=== PATIENT | female | born 1945 | race Caucasian/White ===

== ENCOUNTER 2016-05-22 13:31 | Inpatient (IN) | payer BC, OTHER ==
[~2016-05-22] VITALS: Ht 167.6 cm; Wt 72.5 kg
[~2016-05-22 13:31] MED LIST: Diabeta,Micronase PO; FLEXERIL10 MG PO; GUMMI BEAR MUL1 EACH PO; LEVEMIR FL100 UNITS/ SC; LISINOPRIL-HCT1 EAC3 PO; LO-DOSE ASPIRIN81 M1 PO; Lantus 3 ml Solostar SC; MAGNESIUM OXID420 MG PO; MOBIC7.5 MG PO; Mag-Ox PO; NAPROSYN500 MG PO; NON-ASPIRIN EX500 MG PO; NORCO 5/3251 TABLET PO; PERCOCET 5/31 TABLET PO; SERTRALINE HCL100 MG PO; TRADJENTA5 MG PO; TYLENOL WITH C1 EACH PO; VITAMIN D31000 UNI2 PO; VITAMIN E400 UNI6 PO; ZOFRAN4 MG PO; ZOLOFT25 MG PO; Zestoretic,Prinzide PO; Zocor PO
[2016-05-22 14:11] LABS: HEMATOCRIT 37.6 % (36.0-46.0); MCHC 32.2 G/DL (30.0-36.0); MEAN PLAT.VOLUME 10.3 uM^3 (9.5-12.4); RBC DIS.WIDTH-CV 14.4 % (11.8-14.6); RBC DIS.WIDTH-SD 45.1 % (39-53); RED BLOOD COUNT 4.32 M/uL (3.80-5.20); WHITE BLOOD COUNT 12.8 K/uL (4.1-10.2)
[2016-05-22 14:22] LABS: CHLORIDE 104 mEq/L (99-109); POTASSIUM 4.2 mEq/L (3.7-5.4); SODIUM 137 mEq/L (136-147)
[2016-05-22 14:26] LABS: ANION GAP 8 MEQ/L (2-14); GLUCOSE 424 mg/dL (70-99); TOTAL BILIRUBIN 0.4 mg/dL (0.0-1.0)
[2016-05-22 14:29] LABS: UREA NITROGEN (BUN) 11 mg/dL (9-23)
[2016-05-22 14:31] LABS: GFR ESTIMATE (CALCULATED) > 59 mL/min/
[2016-05-22 14:34] LABS: TROP-I INTERPRETATION NEGATIVE; TROPONIN-I < 0.01 ng/mL (0.0-0.30)
[2016-05-22 14:39] LABS: ALKALINE PHOSPHATASE 91 IU/L (3-129)
[2016-05-22 14:46] LABS: PLATELET COUNT 187 K/uL (156-360)
[2016-05-22 14:58] LABS: EOSINOPHIL (%) 0 % (0-5); HEMATOLOGY COMMENT 1 SMEAR COMPATIBLE; IMMATURE GRANULOCYTE (%) 2.3 % (0.0-0.7); IMMATURE GRANULOCYTE COUNT 2.9 K/uL; LYMPHOCYTE COUNT 0.4 K/uL (1.0-2.8); MONOCYTE (%) 0.5 % (3-12); MONOCYTE COUNT 0.1 K/uL (0-0.8); NEUTROPHIL (%) 93.8 % (45-76); NEUTROPHIL COUNT 12.1 K/uL (1.8-6.4); USER ID NJV
[2016-05-22 15:40] LABS: D-DIMER ELISA 1.33 mg/L FEU (< 0.57)
[2016-05-22] MEDS ORDERED: NORCO 7.5/321 TABLET PO (15:58)
[2016-05-22] MEDS ORDERED: MAGNESIUM GLUCO30 MG PO (15:58)
[2016-05-22] MEDS ORDERED: LEVEMIR FL100 UNIT/1 SC ×2 (15:59)
[2016-05-22] MEDS ORDERED: OMEPRAZOLE40 M1 PO (16:00)
[2016-05-22] MEDS ORDERED: PENNSAID112 GM TP (16:00)
[2016-05-22] MEDS ORDERED: ONE-A-DAY ESSE1 EAC1 PO (16:00)
[2016-05-22 17:38] LABS: POINT-OF-CARE METER ID UU13113702; POINT-OF-CARE USER ID 608261323
[2016-05-23 00:38] VITALS: BP 158/70
[2016-05-23 00:42] LABS: POINT-OF-CARE METER ID UU14162513
[2016-05-23 04:41] VITALS: BP 102/54
[2016-05-23 06:23] LABS: EOSINOPHIL (%) 0.1 % (0-5); HEMATOCRIT 32.2 % (36.0-46.0); IMMATURE GRANULOCYTE (%) 0.2 % (0.0-0.7); LYMPHOCYTE COUNT 1.5 K/uL (1.0-2.8); MCH 28.4 PG (29.0-34.0); MCV 88.7 FL (83-99); MEAN PLAT.VOLUME 11.4 uM^3 (9.5-12.4); MONOCYTE (%) 6.3 % (3-12); MONOCYTE COUNT 0.9 K/uL (0-0.8); NEUTROPHIL (%) 82.2 % (45-76); NEUTROPHIL COUNT 11.4 K/uL (1.8-6.4); PLATELET COUNT 175 K/uL (156-360); RBC DIS.WIDTH-CV 14.7 % (11.8-14.6); RED BLOOD COUNT 3.63 M/uL (3.80-5.20); WHITE BLOOD COUNT 13.8 K/uL (4.1-10.2)
[2016-05-23 07:30] LABS: INTERNAL CONTROL VALID? YES
[2016-05-23 08:17] VITALS: BP 125/60
[2016-05-23 08:46] LABS: POINT-OF-CARE METER ID UU14162513
[2016-05-23 12:24] VITALS: BP 120/58
[2016-05-23 12:58] LABS: POINT-OF-CARE METER ID UU14162513
[2016-05-23 16:29] VITALS: BP 149/67
[2016-05-23 17:32] LABS: POINT-OF-CARE METER ID UU14162513
[2016-05-23 19:34] VITALS: BP 142/63
[2016-05-23 22:24] LABS: POINT-OF-CARE METER ID UU13113831
[2016-05-24 00:02] VITALS: BP 145/67
[2016-05-24 02:12] LABS: POINT-OF-CARE METER ID UU14162513
[2016-05-24 03:50] VITALS: BP 140/67
[2016-05-24 06:35] LABS: POINT-OF-CARE METER ID UU13113700
[2016-05-24 08:17] VITALS: BP 123/59
[2016-05-24 08:46] LABS: HEMATOCRIT 34.1 % (36.0-46.0); MCH 28.4 PG (29.0-34.0); MCV 88.8 FL (83-99); MEAN PLAT.VOLUME 10.6 uM^3 (9.5-12.4); PLATELET COUNT 197 K/uL (156-360); RBC DIS.WIDTH-CV 14.7 % (11.8-14.6); RED BLOOD COUNT 3.84 M/uL (3.80-5.20); WHITE BLOOD COUNT 11.6 K/uL (4.1-10.2)
[2016-05-24 09:09] LABS: ANION GAP 8 MEQ/L (2-14); CHLORIDE 100 MEQ/L (99-109); GFR ESTIMATE (CALCULATED) > 59 mL/min/; GLUCOSE 243 mg/dL (70-99); POTASSIUM 4.1 MEQ/L (3.7-5.4); SAMPLE HEMOLYSIS CHECK 0; SAMPLE ICTERIC CHECK 0; SAMPLE LIPEMIA CHECK 0; SODIUM 137 MEQ/L (136-147); UREA NITROGEN (BUN) 11 mg/dL (9-23)
[2016-05-24] MEDS ORDERED: PREDNISONE20 MG PO (10:37)
[2016-05-24] MEDS ORDERED: GUAIFENESIN WI120 M1 PO (10:37)
[2016-05-24] MEDS ORDERED: CEFDINIR300 MG PO (10:44)
[2016-05-24 12:44] VITALS: BP 130/67
[2016-05-24 14:25] LABS: POINT-OF-CARE METER ID UU13113831
[2016-05-25 21:28] LABS: POINT-OF-CARE METER ID UU13113700
[2016-05-27 11:14] LABS: M. pneumoniae Ab, IgG 1.73 (<=0.90)
== END 2016-05-24 14:30 | disposition home or self-care (01) | DRG 193 ==
LOC: EME 13:31 → EDOF 20:45 → 5WEST 20:45 → EDOF 20:45 → 5WEST 05-23 00:01
PROVIDERS: Emergency Medicine; Family Medicine; Internal Medicine; Physician Assistant
DX: J18.9 Pneumonia, unspecified organism (principal); J95.821 Acute postprocedural respiratory failure; Y83.8 Other surgical procedures as the cause of abnormal reaction of the patient, or of later complication, without mention of misadventure at the time of the procedure; J20.9 Acute bronchitis, unspecified; E11.9 Type 2 diabetes mellitus without complications; I10 Essential (primary) hypertension; G89.4 Chronic pain syndrome; M54.16 Radiculopathy, lumbar region; Z77.22 Contact with and (suspected) exposure to environmental tobacco smoke (acute) (chronic); Z98.890 Other specified postprocedural states; Z79.4 Long term (current) use of insulin; Z66 Do not resuscitate
CPT/HCPCS: 71010; 71020; 71275; 80048; 80053; 82948; 84484; 85025; 85027; 85379; 85730; 86738 90; 87040; 87449; 93005; 94640; 94640 76; 94667; 94668; 94799; 99202; 99281; 99285; G0378; J0696; J7050; J7512

== ENCOUNTER 2017-07-04 11:22 | Inpatient (IN) | payer BC, OTHER ==
[~2017-07-04] VITALS: Ht 167.6 cm; Wt 83.8 kg
[~2017-07-04 11:22] MED LIST changes: +CEFDINIR300 MG PO; +GUAIFENESIN WI120 M1 PO; +LEVEMIR FL100 UNIT/1 SC; +MAGNESIUM GLUCO30 MG PO; +NORCO 7.5/321 TABLET PO; +OMEPRAZOLE40 M1 PO; +ONE-A-DAY ESSE1 EAC1 PO; +PENNSAID112 GM TP; +PREDNISONE20 MG PO
[2017-07-04 13:11] LABS: BASOPHIL (%) 0.3 % (0-1); BASOPHIL COUNT 0.1 K/uL (0-0.1); EOSINOPHIL (%) 0.5 % (0-5); EOSINOPHIL COUNT 0.1 K/uL (0-0.3); HEMATOCRIT 36.7 % (36.0-46.0); HEMOGLOBIN 12.1 G/DL (11.9-15.5); IMMATURE GRANULOCYTE (%) 0.8 % (0.0-0.7); LYMPHOCYTE (%) 5.9 % (15-42); LYMPHOCYTE COUNT 1.1 K/uL (1.0-2.8); MCH 29.4 PG (29.0-34.0); MCV 89.3 FL (83-99); MONOCYTE (%) 2.6 % (3-12); MONOCYTE COUNT 0.5 K/uL (0-0.8); NEUTROPHIL (%) 89.9 % (45-76); NEUTROPHIL COUNT 16.4 K/uL (1.8-6.4); PLATELET COUNT 220 K/uL (156-360); RBC DIS.WIDTH-CV 13.2 % (11.8-14.6); RBC DIS.WIDTH-SD 43.2 % (39-53); RED BLOOD COUNT 4.11 M/uL (3.80-5.20); WHITE BLOOD COUNT 18.2 K/uL (4.1-10.2)
[2017-07-04 13:16] LABS: INTER. NORMALIZED RATIO 1.1
[2017-07-04 13:19] LABS: PTT 28.1 SEC (25-37)
[2017-07-04 13:24] LABS: ALBUMIN 3.6 g/dL (3.2-4.8); CHLORIDE 105 mEq/L (99-109); POTASSIUM 4.5 mEq/L (3.7-5.4); SODIUM 141 mEq/L (136-147)
[2017-07-04 13:25] LABS: MAGNESIUM 1.9 mg/dL (1.3-2.7)
[2017-07-04 13:26] LABS: GLUCOSE 219 mg/dL (70-99); TOTAL PROTEIN 6.7 g/dL (6.4-8.3)
[2017-07-04 13:28] LABS: TOTAL BILIRUBIN 0.9 mg/dL (0.0-1.0)
[2017-07-04 13:30] LABS: ALKALINE PHOSPHATASE 98 IU/L (3-129); CREATININE 0.7 mg/dL (0.6-1.3); GFR ESTIMATE (CALCULATED) > 59 mL/min/
[2017-07-04 13:31] LABS: UREA NITROGEN (BUN) 11 mg/dL (9-23)
[2017-07-04 13:32] LABS: AST (GOT) 23 IU/L (2-34)
[2017-07-04 13:33] LABS: ALT (GPT) 16 IU/L (3-49)
[2017-07-04] MEDS ORDERED: TRESIBA FL100 UNIT/1 SC (13:50)
[2017-07-04] MEDS ORDERED: XANAX0.25 MG PO (13:51)
[2017-07-04] MEDS ORDERED: ULTRAM50 MG PO (13:51)
[2017-07-04 13:57] LABS: TROP-I INTERPRETATION NEGATIVE; TROPONIN-I < 0.01 ng/mL (0.0-0.30)
[2017-07-04 16:01] VITALS: BP 118/60
[2017-07-04 20:22] VITALS: BP 129/60
[2017-07-04 23:30] VITALS: BP 97/51
[2017-07-05 04:16] VITALS: BP 103/51
[2017-07-05 06:16] LABS: HEMATOCRIT 27.3 % (36.0-46.0); MCH 29.4 PG (29.0-34.0); MCHC 32.6 G/DL (30.0-36.0); MCV 90.1 FL (83-99); PLATELET COUNT 192 K/uL (156-360); RBC DIS.WIDTH-CV 13.6 % (11.8-14.6); RBC DIS.WIDTH-SD 44.8 % (39-53); WHITE BLOOD COUNT 13.2 K/uL (4.1-10.2)
[2017-07-05 06:17] LABS: HEMOGLOBIN 8.9 G/DL (11.9-15.5); RED BLOOD COUNT 3.03 M/uL (3.80-5.20)
[2017-07-05 06:33] LABS: CHLORIDE 102 MEQ/L (99-109); CREATININE 0.7 MG/DL (0.6-1.3); GFR ESTIMATE (CALCULATED) > 59 mL/min/; GLUCOSE 230 mg/dL (70-99); POTASSIUM 3.9 MEQ/L (3.7-5.4); SODIUM 137 MEQ/L (136-147); UREA NITROGEN (BUN) 14 mg/dL (9-23)
[2017-07-05 08:11] VITALS: BP 120/58
[2017-07-05 11:50] VITALS: BP 122/58
[2017-07-05 16:01] VITALS: BP 112/67
[2017-07-05 23:07] VITALS: BP 129/59
[2017-07-06 07:03] LABS: HEMOGLOBIN 7.8 G/DL (11.9-15.5); MCH 28.8 PG (29.0-34.0); MCHC 31.2 G/DL (30.0-36.0); MCV 92.3 FL (83-99); PLATELET COUNT 148 K/uL (156-360); RBC DIS.WIDTH-CV 13.5 % (11.8-14.6); RBC DIS.WIDTH-SD 45.3 % (39-53); RED BLOOD COUNT 2.71 M/uL (3.80-5.20)
[2017-07-06 07:26] LABS: CHLORIDE 103 MEQ/L (99-109); CREATININE 0.6 MG/DL (0.6-1.3); GFR ESTIMATE (CALCULATED) > 59 mL/min/; GLUCOSE 172 mg/dL (70-99); MAGNESIUM 1.9 mg/dl (1.3-2.7); POTASSIUM 4.3 MEQ/L (3.7-5.4); SODIUM 141 MEQ/L (136-147); UREA NITROGEN (BUN) 10 mg/dL (9-23)
[2017-07-06 07:32] VITALS: BP 123/58
[2017-07-06 16:01] VITALS: BP 135/64
[2017-07-06 16:29] VITALS: BP 132/63
[2017-07-06 17:30] VITALS: BP 131/59
[2017-07-06 18:33] VITALS: BP 108/59
[2017-07-07 00:20] VITALS: BP 112/57
[2017-07-07 08:00] VITALS: BP 131/60
[2017-07-07 09:54] LABS: BASOPHIL (%) 0.3 % (0-1); EOSINOPHIL (%) 1.5 % (0-5); EOSINOPHIL COUNT 0.2 K/uL (0-0.3); HEMATOCRIT 27.1 % (36.0-46.0); HEMOGLOBIN 8.8 G/DL (11.9-15.5); IMMATURE GRANULOCYTE (%) 0.5 % (0.0-0.7); LYMPHOCYTE (%) 7.1 % (15-42); LYMPHOCYTE COUNT 0.9 K/uL (1.0-2.8); MCH 29.8 PG (29.0-34.0); MCHC 32.5 G/DL (30.0-36.0); MCV 91.9 FL (83-99); MONOCYTE (%) 5.5 % (3-12); MONOCYTE COUNT 0.7 K/uL (0-0.8); NEUTROPHIL (%) 85.1 % (45-76); NEUTROPHIL COUNT 11.1 K/uL (1.8-6.4); PLATELET COUNT 167 K/uL (156-360); RBC DIS.WIDTH-CV 14.1 % (11.8-14.6); RBC DIS.WIDTH-SD 47.2 % (39-53); RED BLOOD COUNT 2.95 M/uL (3.80-5.20)
[2017-07-07 10:18] LABS: CHLORIDE 98 MEQ/L (99-109); CREATININE 0.7 MG/DL (0.6-1.3); GFR ESTIMATE (CALCULATED) > 59 mL/min/; POTASSIUM 3.7 MEQ/L (3.7-5.4); SODIUM 135 MEQ/L (136-147); UREA NITROGEN (BUN) 18 mg/dL (9-23)
[2017-07-07 10:21] LABS: GLUCOSE 301 mg/dL (70-99)
[2017-07-07 16:24] VITALS: BP 105/55
[2017-07-08 00:32] VITALS: BP 109/65
[2017-07-08 11:15] VITALS: BP 106/53
[2017-07-08 16:00] VITALS: BP 97/53
[2017-07-08 20:23] VITALS: BP 103/53
[2017-07-08 23:55] VITALS: BP 125/57
[2017-07-09 04:31] VITALS: BP 99/54
[2017-07-09 08:30] VITALS: BP 121/58
[2017-07-09] MEDS ORDERED: HYDROCODON-ACE1 EAC7 PO (12:52)
[2017-07-09] MEDS ORDERED: SENNA-DOCUSATE1 EAC1 PO (12:53)
[2017-07-09] MEDS ORDERED: LOVENOX40 MG/0.4 SC (12:55)
[2017-07-09] MEDS ORDERED: LISINOPRIL10 MG PO (12:58)
[2017-07-09 15:32] VITALS: BP 106/52
[2017-07-09 23:39] VITALS: BP 117/57
[2017-07-10 08:27] VITALS: BP 135/63
[2017-07-10 16:27] VITALS: BP 128/60
== END 2017-07-10 19:14 | DRG 481 ==
LOC: EME 11:22 → EDOF 13:08 → 3EAST 13:08 → ENRESERV 13:09 → EDOF 13:28 → ENRESERV 13:52 → 3EAST 14:45
PROVIDERS: Emergency Medicine; Internal Medicine; Physician Assistant; Student in an Organized Health Care Education/Training Program
PROC: 0QS736Z Reposition Left Upper Femur with Intramedullary Internal Fixation Device, Percutaneous Approach (ICD-10-PCS; principal; 2017-07-04)
DX: S72.142A Displaced intertrochanteric fracture of left femur, initial encounter for closed fracture (principal); E11.65 Type 2 diabetes mellitus with hyperglycemia; D62 Acute posthemorrhagic anemia; S72.22XA Displaced subtrochanteric fracture of left femur, initial encounter for closed fracture; K21.9 Gastro-esophageal reflux disease without esophagitis; I10 Essential (primary) hypertension; W01.0XXA Fall on same level from slipping, tripping and stumbling without subsequent striking against object, initial encounter; F41.9 Anxiety disorder, unspecified; Z90.710 Acquired absence of both cervix and uterus; K59.00 Constipation, unspecified; F32.9 Major depressive disorder, single episode, unspecified
CPT/HCPCS: 71045; 73502; 73552; 76000; 80048; 80053; 82948; 83735; 84484; 85025; 85027; 85610; 85730; 86850; 86900; 86901; 86920; 93005; 97530 GP; 99281; 99284; C1713; J0330; J0690; J1170; J1644; J1815; J2270; J2405; J3010; J7120; P9040; S0020; S0028

== ENCOUNTER 2017-07-22 15:08 | Inpatient (IN) | payer BC, OTHER ==
[~2017-07-22] VITALS: Ht 167.6 cm; Wt 80.4 kg
[~2017-07-22 15:08] MED LIST changes: +HYDROCODON-ACE1 EAC7 PO; +LISINOPRIL10 MG PO; +LOVENOX40 MG/0.4 SC; +SENNA-DOCUSATE1 EAC1 PO; +TRESIBA FL100 UNIT/1 SC; +ULTRAM50 MG PO; +XANAX0.25 MG PO
[2017-07-22 15:45] LABS: HEMATOCRIT 32.1 % (36.0-46.0); HEMOGLOBIN 10.1 G/DL (11.9-15.5); MCH 30.4 PG (29.0-34.0); MCHC 31.5 G/DL (30.0-36.0); MCV 96.7 FL (83-99); PLATELET COUNT 288 K/uL (156-360); RBC DIS.WIDTH-SD 58.4 % (39-53); RED BLOOD COUNT 3.32 M/uL (3.80-5.20); WHITE BLOOD COUNT 11.7 K/uL (4.1-10.2)
[2017-07-22 15:59] LABS: CHLORIDE 107 mEq/L (99-109)
[2017-07-22 16:00] LABS: POTASSIUM 4.2 mEq/L (3.7-5.4); SODIUM 142 mEq/L (136-147)
[2017-07-22 16:01] LABS: GLUCOSE 83 mg/dL (70-99)
[2017-07-22 16:05] LABS: CREATININE 0.7 mg/dL (0.6-1.3); GFR ESTIMATE (CALCULATED) > 59 mL/min/
[2017-07-22 16:06] LABS: UREA NITROGEN (BUN) 16 mg/dL (9-23)
[2017-07-22 16:12] LABS: TROP-I INTERPRETATION NEGATIVE; TROPONIN-I 0.02 ng/mL (0.0-0.30)
[2017-07-22] MEDS ORDERED: PRILOSEC20 MG PO (18:52)
[2017-07-22] MEDS ORDERED: VERAPAMIL HCL180 MG PO (18:53)
[2017-07-22] MEDS ORDERED: PAIN & FEVER325 MG PO (18:54)
[2017-07-22] MEDS ORDERED: ULTRAM50 MG PO (18:54)
[2017-07-22] MEDS ORDERED: MYLICON,MYLANTA80 MG PO (18:55)
[2017-07-22] MEDS ORDERED: ZOFRAN4 MG PO (18:56)
[2017-07-22 19:25] LABS: THYROTROPIN (TSH) 1.1 MIU/L (0.4-5.5)
[2017-07-22 23:20] VITALS: BP 112/74
[2017-07-23 01:08] LABS: TROP-I INTERPRETATION NEGATIVE; TROPONIN-I 0.02 ng/mL (0.0-0.30)
[2017-07-23 03:30] VITALS: BP 104/74
[2017-07-23 04:51] LABS: HEMATOCRIT 31.7 % (36.0-46.0); HEMOGLOBIN 9.8 G/DL (11.9-15.5); MCH 30.3 PG (29.0-34.0); MCHC 30.9 G/DL (30.0-36.0); MCV 98.1 FL (83-99); PLATELET COUNT 267 K/uL (156-360); RBC DIS.WIDTH-CV 17.2 % (11.8-14.6); RED BLOOD COUNT 3.23 M/uL (3.80-5.20); WHITE BLOOD COUNT 10.7 K/uL (4.1-10.2)
[2017-07-23 05:00] LABS: ALBUMIN 3.3 g/dL (3.2-4.8); CHLORIDE 110 mEq/L (99-109); POTASSIUM 4.2 mEq/L (3.7-5.4); SODIUM 143 mEq/L (136-147)
[2017-07-23 05:02] LABS: TOTAL PROTEIN 5.7 g/dL (6.4-8.3)
[2017-07-23 05:04] LABS: TOTAL BILIRUBIN 0.9 mg/dL (0.0-1.0)
[2017-07-23 05:06] LABS: ALKALINE PHOSPHATASE 171 IU/L (3-129)
[2017-07-23 05:07] LABS: UREA NITROGEN (BUN) 17 mg/dL (9-23)
[2017-07-23 05:08] LABS: AST (GOT) 13 IU/L (2-34); TROP-I INTERPRETATION NEGATIVE; TROPONIN-I 0.02 ng/mL (0.0-0.30)
[2017-07-23 05:09] LABS: ALT (GPT) 11 IU/L (3-49)
[2017-07-23 05:12] LABS: GLUCOSE 113 mg/dL (70-99)
[2017-07-23 05:36] LABS: CREATININE 0.8 mg/dL (0.6-1.3); GFR ESTIMATE (CALCULATED) > 59 mL/min/
[2017-07-23 08:04] VITALS: BP 124/86
[2017-07-23 13:32] VITALS: BP 104/62
[2017-07-23 16:15] VITALS: BP 137/100
[2017-07-23 16:21] LABS: TROP-I INTERPRETATION NEGATIVE; TROPONIN-I 0.03 ng/mL (0.0-0.30)
[2017-07-23 20:13] VITALS: BP 121/87
[2017-07-24] VITALS (7 sets, daily range): BP systolic 93–144; BP diastolic 65–83
[2017-07-25 05:10] VITALS: BP 130/84
[2017-07-25 06:34] LABS: CHLORIDE 106 MEQ/L (99-109); CREATININE 0.7 MG/DL (0.6-1.3); GFR ESTIMATE (CALCULATED) > 59 mL/min/; POTASSIUM 3.7 MEQ/L (3.7-5.4); SODIUM 142 MEQ/L (136-147); UREA NITROGEN (BUN) 13 mg/dL (9-23)
[2017-07-25 06:38] LABS: GLUCOSE 71 mg/dL (70-99)
[2017-07-25 07:46] VITALS: BP 110/64
[2017-07-25 11:12] VITALS: BP 94/65
[2017-07-25 16:44] VITALS: BP 126/74
[2017-07-25 20:48] VITALS: BP 122/72
[2017-07-25 23:15] VITALS: BP 120/67
[2017-07-26 03:40] VITALS: BP 128/79
[2017-07-26 07:04] VITALS: BP 120/63
[2017-07-26] MEDS ORDERED: ELIQUIS5 MG PO (11:22)
[2017-07-26 11:33] VITALS: BP 114/66
[2017-07-26 19:37] VITALS: BP 114/73
[2017-07-26 23:34] VITALS: BP 104/57
[2017-07-27 04:00] VITALS: BP 112/81
[2017-07-27 06:24] LABS: CHLORIDE 105 MEQ/L (99-109); CREATININE 0.6 MG/DL (0.6-1.3); GFR ESTIMATE (CALCULATED) > 59 mL/min/; GLUCOSE 87 mg/dL (70-99); POTASSIUM 3.6 MEQ/L (3.7-5.4); SODIUM 142 MEQ/L (136-147); UREA NITROGEN (BUN) 16 mg/dL (9-23)
[2017-07-27 07:27] VITALS: BP 127/79
[2017-07-27 07:31] LABS: DIGOXIN < 0.3 ng/mL (0.8-2.0)
[2017-07-27 12:00] VITALS: BP 104/55
[2017-07-27 15:30] VITALS: BP 110/64
[2017-07-27 18:51] VITALS: BP 106/61
[2017-07-27 23:44] VITALS: BP 118/72
[2017-07-28 04:31] VITALS: BP 114/70
[2017-07-28 07:11] VITALS: BP 114/71
[2017-07-28 11:15] VITALS: BP 99/68
[2017-07-28] MEDS ORDERED: CARDIZEM CD,CA180 MG PO (17:06)
[2017-07-28] MEDS ORDERED: METOPROLOL TART75 MG PO (17:06)
[2017-07-28 21:25] VITALS: BP 133/68
[2017-07-28 23:29] VITALS: BP 101/66
[2017-07-29 04:20] VITALS: BP 126/71
[2017-07-29 05:40] LABS: HEMATOCRIT 33.4 % (36.0-46.0); HEMOGLOBIN 10.2 G/DL (11.9-15.5); MCHC 30.5 G/DL (30.0-36.0); MCV 94.9 FL (83-99); PLATELET COUNT 295 K/uL (156-360); RBC DIS.WIDTH-CV 16.7 % (11.8-14.6); RBC DIS.WIDTH-SD 58.2 % (39-53); RED BLOOD COUNT 3.52 M/uL (3.80-5.20); WHITE BLOOD COUNT 13.7 K/uL (4.1-10.2)
[2017-07-29 06:41] LABS: CHLORIDE 102 MEQ/L (99-109); CREATININE 0.5 MG/DL (0.6-1.3); GFR ESTIMATE (CALCULATED) > 59 mL/min/; GLUCOSE 85 mg/dL (70-99); POTASSIUM 4.2 MEQ/L (3.7-5.4); SODIUM 136 MEQ/L (136-147); UREA NITROGEN (BUN) 15 mg/dL (9-23)
[2017-07-29 07:10] VITALS: BP 154/74
[2017-07-29 11:44] VITALS: BP 115/70
== END 2017-07-29 14:40 | DRG 309 ==
LOC: EME 15:08 → EDOF 17:53 → 4EAST 17:53 → ENRESERV 17:58 → 4EAST 23:11 → CANRESERV 07-23 14:44 → ENRESERV 07-23 14:44 → ENPENDDIS 07-29 → 4EAST 07-29 14:40
PROVIDERS: Family Medicine; Hospitalist; Internal Medicine
DX: I48.1 Persistent atrial fibrillation (principal); J81.1 Chronic pulmonary edema; I08.1 Rheumatic disorders of both mitral and tricuspid valves; I10 Essential (primary) hypertension; S72.002D Fracture of unspecified part of neck of left femur, subsequent encounter for closed fracture with routine healing; W18.30XD Fall on same level, unspecified, subsequent encounter; R11.0 Nausea; E11.9 Type 2 diabetes mellitus without complications; D64.9 Anemia, unspecified; E66.9 Obesity, unspecified; Z68.29 Body mass index [BMI] 29.0-29.9, adult; G89.29 Other chronic pain; M54.5 Low back pain; R01.1 Cardiac murmur, unspecified; F32.9 Major depressive disorder, single episode, unspecified; F41.9 Anxiety disorder, unspecified; Z79.4 Long term (current) use of insulin; Z79.82 Long term (current) use of aspirin; Z96.89 Presence of other specified functional implants; Z98.890 Other specified postprocedural states; Z90.710 Acquired absence of both cervix and uterus
CPT/HCPCS: 71045; 71046; 71275; 74177; 80048; 80048 91; 80053; 80162; 82948; 83690; 83735; 83880; 84145 90; 84443; 84484; 85027; 93005; 93306; 94640; 94640 76; 97530 GO; 99202; 99281; 99285; J1160; J1650; J1815; J1940; J2405; J3010; J7030; S0028

== ENCOUNTER 2017-08-09 14:27 | Inpatient (IN) | payer BC, OTHER ==
[~2017-08-09] VITALS: Ht 167.6 cm; Wt 80.7 kg
[~2017-08-09 14:27] MED LIST changes: +CARDIZEM CD,CA180 MG PO; +ELIQUIS5 MG PO; +METOPROLOL TART75 MG PO; +MYLICON,MYLANTA80 MG PO; +PAIN & FEVER325 MG PO; +PRILOSEC20 MG PO; +VERAPAMIL HCL180 MG PO
[2017-08-09 15:57] LABS: BASOPHIL (%) 0.2 % (0-1); EOSINOPHIL (%) 0.1 % (0-5); HEMATOCRIT 36.3 % (36.0-46.0); HEMOGLOBIN 11.4 G/DL (11.9-15.5); IMMATURE GRANULOCYTE (%) 0.5 % (0.0-0.7); LYMPHOCYTE (%) 5.9 % (15-42); MCH 29.2 PG (29.0-34.0); MCHC 31.4 G/DL (30.0-36.0); MCV 92.8 FL (83-99); MONOCYTE (%) 4.9 % (3-12); MONOCYTE COUNT 0.8 K/uL (0-0.8); NEUTROPHIL (%) 88.4 % (45-76); NEUTROPHIL COUNT 14.7 K/uL (1.8-6.4); PLATELET COUNT 309 K/uL (156-360); RBC DIS.WIDTH-CV 16.3 % (11.8-14.6); RBC DIS.WIDTH-SD 55.2 % (39-53); RED BLOOD COUNT 3.91 M/uL (3.80-5.20); WHITE BLOOD COUNT 16.6 K/uL (4.1-10.2)
[2017-08-09 16:07] LABS: PTT 32.8 SEC (25-37)
[2017-08-09 16:13] LABS: ALBUMIN 3.1 g/dL (3.2-4.8); CHLORIDE 102 mEq/L (99-109); POTASSIUM 4.4 mEq/L (3.7-5.4); SODIUM 139 mEq/L (136-147)
[2017-08-09 16:15] LABS: GLUCOSE 127 mg/dL (70-99); TOTAL PROTEIN 6.4 g/dL (6.4-8.3)
[2017-08-09 16:17] LABS: TOTAL BILIRUBIN 1.1 mg/dL (0.0-1.0)
[2017-08-09 16:19] LABS: ALKALINE PHOSPHATASE 125 IU/L (3-129); CREATININE 0.7 mg/dL (0.6-1.3); GFR ESTIMATE (CALCULATED) > 59 mL/min/
[2017-08-09 16:20] LABS: UREA NITROGEN (BUN) 20 mg/dL (9-23)
[2017-08-09 16:21] LABS: AST (GOT) 32 IU/L (2-34)
[2017-08-09 16:22] LABS: ALT (GPT) 18 IU/L (3-49); LIPASE 18 U/L (1.0-51.0)
[2017-08-09 16:23] LABS: TROP-I INTERPRETATION NEGATIVE; TROPONIN-I 0.01 ng/mL (0.0-0.30)
[2017-08-09 16:50] LABS: INTER. NORMALIZED RATIO 3.2
[2017-08-09 17:08] LABS: BASE EXCESS 2.6 mEq/L (-3 to +3); BICARBONATE 26.2 mEq/L (22-26); CARBOXY HGB 2.8 % (0-5); METHEMOGLOBIN 1.1 % (0-1.5); PCO2 36 mm Hg (35-45); PO2 64 mm Hg (80-100); SITE LR +A; pH 7.47 (7.35-7.45)
[2017-08-09 17:09] LABS: COMMENTS - BLOOD GASES +C; DEVICE NC; O2 FLOW 6 L/MIN; TOTAL RESP RATE 24 resp/min
[2017-08-09] MEDS ORDERED: COLACE100 MG PO (17:15)
[2017-08-09] MEDS ORDERED: LOPRESSOR100 M1 PO (17:16)
[2017-08-09] MEDS ORDERED: DIGOXIN125 MCG PO (17:17)
[2017-08-09] MEDS ORDERED: LEVAQUIN750 MG PO (17:20)
[2017-08-09] MEDS ORDERED: DUONEB 2.5-0.5 M3 ML AEROSOL (17:22)
[2017-08-09] MEDS ORDERED: MILK OF MAGN PO (17:23)
[2017-08-09] MEDS ORDERED: DULCOLAX10 MG PR (17:24)
[2017-08-09] MEDS ORDERED: ENEMA133 M2 PR (17:25)
[2017-08-09 19:51] VITALS: BP 115/70
[2017-08-09 20:30] LABS: APPEARANCE SL.HAZY ((CLEAR)); BILIRUBIN NEGATIVE; BLOOD NEGATIVE; GLUCOSE (STRIP) NEGATIVE; KETONES NEGATIVE; LEUKOCYTES NEGATIVE; NITRITE NEGATIVE; PROTEIN (STRIP) 30; SPECIFIC GRAVITY 1.029 (1.000-1.030)
[2017-08-09 20:36] LABS: BACTERIA RARE /HPF; COLOR AMBER ((YELLOW)); EPITHELIAL CELLS 1+ /HPF; HYALINE CASTS 0-5 /LPF; MUCUS TRACE /LPF; UCUL ADDED? YES
[2017-08-09 22:51] VITALS: BP 139/77
[2017-08-09 23:10] VITALS: BP 119/65
[2017-08-10] VITALS (9 sets, daily range): BP systolic 123–148; BP diastolic 56–97
[2017-08-10 04:59] LABS: HEMATOCRIT 33.8 % (36.0-46.0); HEMOGLOBIN 10.6 G/DL (11.9-15.5); MCH 28.9 PG (29.0-34.0); MCHC 31.4 G/DL (30.0-36.0); MCV 92.1 FL (83-99); PLATELET COUNT 277 K/uL (156-360); RBC DIS.WIDTH-CV 16.3 % (11.8-14.6); RBC DIS.WIDTH-SD 55.8 % (39-53); RED BLOOD COUNT 3.67 M/uL (3.80-5.20); WHITE BLOOD COUNT 17.5 K/uL (4.1-10.2)
[2017-08-10 05:03] LABS: CHLORIDE 103 mEq/L (99-109); SODIUM 138 mEq/L (136-147)
[2017-08-10 05:04] LABS: GLUCOSE 101 mg/dL (70-99)
[2017-08-10 05:08] LABS: CREATININE 0.7 mg/dL (0.6-1.3); GFR ESTIMATE (CALCULATED) > 59 mL/min/
[2017-08-10 05:09] LABS: UREA NITROGEN (BUN) 18 mg/dL (9-23)
[2017-08-10 05:16] LABS: POTASSIUM 3.5 mEq/L (3.7-5.4)
[2017-08-10 05:41] LABS: ANISOCYTOSIS 1+; BASOPHIL (%) 0.2 % (0-1); EOSINOPHIL (%) 0.1 % (0-5); IMMATURE GRANULOCYTE (%) 0.8 % (0.0-0.7); LYMPHOCYTE (%) 4.7 % (15-42); LYMPHOCYTE COUNT 0.8 K/uL (1.0-2.8); MONOCYTE (%) 4.1 % (3-12); MONOCYTE COUNT 0.7 K/uL (0-0.8); NEUTROPHIL (%) 90.1 % (45-76); NEUTROPHIL COUNT 15.8 K/uL (1.8-6.4); PLAT.SUFFICIENCY ADEQUATE; POLYCHROMASIA 1+
[2017-08-10 17:37] LABS: TROP-I INTERPRETATION NEGATIVE; TROPONIN-I 0.02 ng/mL (0.0-0.30)
[2017-08-10 17:46] LABS: MAGNESIUM 1.8 mg/dl (1.3-2.7); PHOSPHORUS 3.3 mg/dL (2.5-4.9)
[2017-08-10 20:48] LABS: COMMENTS - BLOOD GASES C; O2 FLOW 65 L/MIN; SITE LR
[2017-08-10 20:49] LABS: BICARBONATE 33.3 mEq/L (22-26); CARBOXY HGB 2.1 % (0-5); DEVICE NCHH; FI02 80 %; METHEMOGLOBIN 1.5 % (0-1.5); O2 SATURATION (CALCULATED) 95.2 % (95-99); PCO2 39 mm Hg (35-45); PO2 84 mm Hg (80-100); pH 7.54 (7.35-7.45)
[2017-08-10 22:22] LABS: BASE EXCESS 8.9 mEq/L (-3 to +3); BICARBONATE 32.7 mEq/L (22-26); METHEMOGLOBIN 1.8 % (0-1.5); PCO2 41 mm Hg (35-45); PO2 204 mm Hg (80-100); pH 7.51 (7.35-7.45)
[2017-08-10 22:23] LABS: COMMENTS - BLOOD GASES C+A+; DEVICE NIV; FI02 100 %; MODE SPONT; PEEP 5 CM/H20; PRES. SUPPORT 10 CM/H2O; SITE RR; TOTAL RESP RATE 24 resp/min
[2017-08-11] VITALS (25 sets, daily range): BP systolic 106–157; BP diastolic 41–91
[2017-08-11 05:18] LABS: BASOPHIL (%) 0.2 % (0-1); BASOPHIL COUNT 0.1 K/uL (0-0.1); EOSINOPHIL (%) 0 % (0-5); HEMATOCRIT 36.4 % (36.0-46.0); HEMOGLOBIN 11.1 G/DL (11.9-15.5); IMMATURE GRANULOCYTE (%) 0.9 % (0.0-0.7); LYMPHOCYTE (%) 3.3 % (15-42); LYMPHOCYTE COUNT 0.7 K/uL (1.0-2.8); MCH 28.1 PG (29.0-34.0); MCHC 30.5 G/DL (30.0-36.0); MCV 92.2 FL (83-99); MONOCYTE (%) 3.8 % (3-12); MONOCYTE COUNT 0.8 K/uL (0-0.8); NEUTROPHIL (%) 91.8 % (45-76); NEUTROPHIL COUNT 19.9 K/uL (1.8-6.4); PLATELET COUNT 289 K/uL (156-360); RBC DIS.WIDTH-CV 16.1 % (11.8-14.6); RBC DIS.WIDTH-SD 55.1 % (39-53); RED BLOOD COUNT 3.95 M/uL (3.80-5.20); WHITE BLOOD COUNT 21.7 K/uL (4.1-10.2)
[2017-08-11 05:51] LABS: CREATININE 0.5 MG/DL (0.6-1.3); GFR ESTIMATE (CALCULATED) > 59 mL/min/; VANCOMYCIN, TROUGH 17.9 MCG/ML (10-20)
[2017-08-11 05:52] LABS: CHLORIDE 102 MEQ/L (99-109); CREATININE 0.5 MG/DL (0.6-1.3); GFR ESTIMATE (CALCULATED) > 59 mL/min/; POTASSIUM 2.9 MEQ/L (3.7-5.4); SODIUM 143 MEQ/L (136-147); UREA NITROGEN (BUN) 13 mg/dL (9-23)
[2017-08-11 06:26] LABS: GLUCOSE 30 mg/dL (70-99)
[2017-08-12] VITALS (19 sets, daily range): BP systolic 85–142; BP diastolic 48–94
[2017-08-12 08:23] LABS: BASE EXCESS 2.3 mEq/L (-3 to +3); BICARBONATE 26.4 mEq/L (22-26); CARBOXY HGB 1.8 % (0-5); METHEMOGLOBIN 1.6 % (0-1.5); PCO2 38 mm Hg (35-45); pH 7.45 (7.35-7.45)
[2017-08-12 08:24] LABS: COMMENTS - BLOOD GASES +C; DEVICE PB980; FI02 80 %; MECHANICAL RATE 20 resp/min; MODE ACVC+; PO2 108 mm Hg (80-100); SITE LR +A; TOTAL RESP RATE 20 resp/min
[2017-08-12 08:25] LABS: PEEP 10 CM/H20; TIDAL VOLUME 450 ML
[2017-08-12 08:33] LABS: BASOPHIL (%) 0.3 % (0-1); BASOPHIL COUNT 0.1 K/uL (0-0.1); EOSINOPHIL (%) 0.1 % (0-5); HEMATOCRIT 31.8 % (36.0-46.0); HEMOGLOBIN 9.7 G/DL (11.9-15.5); IMMATURE GRANULOCYTE (%) 1.3 % (0.0-0.7); LYMPHOCYTE (%) 2.8 % (15-42); LYMPHOCYTE COUNT 0.6 K/uL (1.0-2.8); MCH 28.4 PG (29.0-34.0); MCHC 30.5 G/DL (30.0-36.0); MCV 93.3 FL (83-99); MONOCYTE (%) 3.8 % (3-12); MONOCYTE COUNT 0.8 K/uL (0-0.8); NEUTROPHIL (%) 91.7 % (45-76); NEUTROPHIL COUNT 19.5 K/uL (1.8-6.4); PLATELET COUNT 237 K/uL (156-360); RBC DIS.WIDTH-CV 16.6 % (11.8-14.6); RBC DIS.WIDTH-SD 56.4 % (39-53); RED BLOOD COUNT 3.41 M/uL (3.80-5.20); WHITE BLOOD COUNT 21.2 K/uL (4.1-10.2)
[2017-08-12 08:41] LABS: INTER. NORMALIZED RATIO 3.3
[2017-08-12 08:43] LABS: PTT 31.4 SEC (25-37)
[2017-08-12 09:03] LABS: CHLORIDE 103 MEQ/L (99-109); PHOSPHORUS 4.1 mg/dL (2.5-4.9); SODIUM 141 MEQ/L (136-147)
[2017-08-12 09:06] LABS: CREATININE 1.8 MG/DL (0.6-1.3); GFR ESTIMATE (CALCULATED) 30 mL/min/; GLUCOSE 78 mg/dL (70-99); MAGNESIUM 2.3 mg/dl (1.3-2.7); POTASSIUM 4.3 MEQ/L (3.7-5.4); UREA NITROGEN (BUN) 26 mg/dL (9-23)
[2017-08-12 22:12] LABS: VANCOMYCIN, TROUGH 47.1 MCG/ML (10-20)
[2017-08-13] VITALS (21 sets, daily range): BP systolic 98–131; BP diastolic 53–82
[2017-08-13 04:50] LABS: HEMATOCRIT 30.2 % (36.0-46.0); HEMOGLOBIN 9.3 G/DL (11.9-15.5); MCH 28.7 PG (29.0-34.0); MCHC 30.8 G/DL (30.0-36.0); MCV 93.2 FL (83-99); PLATELET COUNT 176 K/uL (156-360); RBC DIS.WIDTH-CV 16.9 % (11.8-14.6); RBC DIS.WIDTH-SD 57.7 % (39-53); RED BLOOD COUNT 3.24 M/uL (3.80-5.20); WHITE BLOOD COUNT 14.7 K/uL (4.1-10.2)
[2017-08-13 04:55] LABS: INTER. NORMALIZED RATIO 2.2
[2017-08-13 04:58] LABS: PTT 32.6 SEC (25-37)
[2017-08-13 05:50] LABS: CHLORIDE 107 MEQ/L (99-109); CREATININE 2.4 MG/DL (0.6-1.3); GFR ESTIMATE (CALCULATED) 21 mL/min/; GLUCOSE 186 mg/dL (70-99); POTASSIUM 4.4 MEQ/L (3.7-5.4); SODIUM 140 MEQ/L (136-147); UREA NITROGEN (BUN) 35 mg/dL (9-23)
[2017-08-13 12:10] LABS: C DIFF TOXIN NEGATIVE (NEGATIVE)
[2017-08-13 16:09] LABS: APPEARANCE CLOUDY ((CLEAR)); BILIRUBIN NEGATIVE; BLOOD LARGE; COLOR YELLOW ((YELLOW)); GLUCOSE (STRIP) NEGATIVE; KETONES NEGATIVE; LEUKOCYTES NEGATIVE; NITRITE NEGATIVE; PROTEIN (STRIP) 30; SPECIFIC GRAVITY 1.028 (1.000-1.030); UROBILINOGEN 0.2 MG/DL (0.2-1.0)
[2017-08-13 16:46] LABS: CHLORIDE 106 MEQ/L (99-109); CREATININE 2.5 MG/DL (0.6-1.3); GFR ESTIMATE (CALCULATED) 20 mL/min/; GLUCOSE 269 mg/dL (70-99); SODIUM 140 MEQ/L (136-147); UREA NITROGEN (BUN) 40 mg/dL (9-23)
[2017-08-13 17:07] LABS: RED BLOOD CELLS 20-30 /HPF (0-5)
[2017-08-13 17:09] LABS: EPITHELIAL CELLS 1+ /HPF
[2017-08-13 17:10] LABS: AMORPHOUS URATES CRYSTALS 2+; BACTERIA 2+ /HPF; COARSE GRANULAR CASTS 0-5 /LPF
[2017-08-13 17:11] LABS: MUCUS 2+ /LPF
[2017-08-13 17:58] LABS: EOSINOPHILS,URINE NONE SEEN
[2017-08-13 19:11] LABS: UR CREATININE CONCENTRATION 79.3 MG/DL
[2017-08-14] VITALS (22 sets, daily range): BP systolic 99–136; BP diastolic 49–86
[2017-08-14 06:32] LABS: HEMATOCRIT 28.8 % (36.0-46.0); MCH 28.1 PG (29.0-34.0); MCHC 31.3 G/DL (30.0-36.0); RBC DIS.WIDTH-CV 17.1 % (11.8-14.6); RBC DIS.WIDTH-SD 56.7 % (39-53)
[2017-08-14 06:49] LABS: BASE EXCESS -1.9 mEq/L (-3 to +3); BICARBONATE 21.7 mEq/L (22-26); METHEMOGLOBIN 1.6 % (0-1.5); PO2 91 mm Hg (80-100); pH 7.44 (7.35-7.45)
[2017-08-14 06:50] LABS: COMMENTS - BLOOD GASES +C; DEVICE PB980; FI02 30 %; MECHANICAL RATE 20 resp/min; MODE ACVC+; PCO2 32 mm Hg (35-45); SITE RR +A
[2017-08-14 06:51] LABS: PEEP 8 CM/H20; TIDAL VOLUME 450 ML; TOTAL RESP RATE 20 resp/min
[2017-08-14 06:53] LABS: CHLORIDE 107 MEQ/L (99-109); CREATININE 2.8 MG/DL (0.6-1.3); GFR ESTIMATE (CALCULATED) 18 mL/min/; GLUCOSE 215 mg/dL (70-99); POTASSIUM 3.9 MEQ/L (3.7-5.4); SODIUM 141 MEQ/L (136-147); UREA NITROGEN (BUN) 45 mg/dL (9-23)
[2017-08-14 06:54] LABS: PLATELET COUNT 242 K/uL (156-360)
[2017-08-15] VITALS (24 sets, daily range): BP systolic 98–138; BP diastolic 53–84
[2017-08-15 05:42] LABS: BASOPHIL (%) 0.7 % (0-1); BASOPHIL COUNT 0.1 K/uL (0-0.1); EOSINOPHIL (%) 6.1 % (0-5); EOSINOPHIL COUNT 0.8 K/uL (0-0.3); HEMATOCRIT 30.7 % (36.0-46.0); HEMOGLOBIN 9.2 G/DL (11.9-15.5); IMMATURE GRANULOCYTE (%) 0.8 % (0.0-0.7); LYMPHOCYTE (%) 6.8 % (15-42); LYMPHOCYTE COUNT 0.9 K/uL (1.0-2.8); MCH 27.5 PG (29.0-34.0); MCV 91.6 FL (83-99); MONOCYTE (%) 5.6 % (3-12); MONOCYTE COUNT 0.7 K/uL (0-0.8); NEUTROPHIL COUNT 10.4 K/uL (1.8-6.4); PLATELET COUNT 251 K/uL (156-360); RBC DIS.WIDTH-SD 56.5 % (39-53); RED BLOOD COUNT 3.35 M/uL (3.80-5.20); WHITE BLOOD COUNT 12.9 K/uL (4.1-10.2)
[2017-08-15 06:17] LABS: CHLORIDE 106 MEQ/L (99-109); CREATININE 2.9 MG/DL (0.6-1.3); GFR ESTIMATE (CALCULATED) 17 mL/min/; GLUCOSE 215 mg/dL (70-99); MAGNESIUM 2.5 mg/dl (1.3-2.7); PHOSPHORUS 4.2 mg/dL (2.5-4.9); POTASSIUM 3.8 MEQ/L (3.7-5.4); SODIUM 137 MEQ/L (136-147); UREA NITROGEN (BUN) 49 mg/dL (9-23)
[2017-08-15 11:19] LABS: ALBUMIN 2.1 G/DL (3.2-4.8); ALKALINE PHOSPHATASE 104 IU/L (3-129); ALT (GPT) 8 IU/L (3-49); AST (GOT) 15 IU/L (2-34); DIRECT BILIRUBIN 0.2 mg/dL (0.0-0.3); TOTAL BILIRUBIN 0.4 MG/DL (0.0-1.0)
[2017-08-15 11:23] LABS: INTER. NORMALIZED RATIO 1.1
[2017-08-15 11:26] LABS: PTT 27.4 SEC (25-37)
[2017-08-16] VITALS (24 sets, daily range): BP systolic 108–141; BP diastolic 53–81
[2017-08-16 05:04] LABS: BASOPHIL (%) 0.3 % (0-1); EOSINOPHIL (%) 5.6 % (0-5); EOSINOPHIL COUNT 0.7 K/uL (0-0.3); HEMATOCRIT 28.9 % (36.0-46.0); IMMATURE GRANULOCYTE (%) 1.2 % (0.0-0.7); LYMPHOCYTE COUNT 0.9 K/uL (1.0-2.8); MCH 28.2 PG (29.0-34.0); MCHC 31.1 G/DL (30.0-36.0); MCV 90.6 FL (83-99); MONOCYTE (%) 5.5 % (3-12); MONOCYTE COUNT 0.7 K/uL (0-0.8); NEUTROPHIL (%) 80.4 % (45-76); NEUTROPHIL COUNT 9.8 K/uL (1.8-6.4); PLATELET COUNT 244 K/uL (156-360); RBC DIS.WIDTH-CV 17.1 % (11.8-14.6); RBC DIS.WIDTH-SD 56.4 % (39-53); RED BLOOD COUNT 3.19 M/uL (3.80-5.20); WHITE BLOOD COUNT 12.2 K/uL (4.1-10.2)
[2017-08-16 05:35] LABS: CHLORIDE 105 MEQ/L (99-109); CREATININE 2.9 MG/DL (0.6-1.3); GFR ESTIMATE (CALCULATED) 17 mL/min/; GLUCOSE 194 mg/dL (70-99); POTASSIUM 3.6 MEQ/L (3.7-5.4); SODIUM 134 MEQ/L (136-147); UREA NITROGEN (BUN) 51 mg/dL (9-23)
[2017-08-16 14:51] LABS: BASE EXCESS -1.7 mEq/L (-3 to +3); METHEMOGLOBIN 1.7 % (0-1.5); PO2 86 mm Hg (80-100); pH 7.39 (7.35-7.45)
[2017-08-16 14:52] LABS: COMMENTS - BLOOD GASES A+C+; DEVICE VENT; FI02 30 %; MODE SPONT PS; PCO2 38 mm Hg (35-45); PEEP 8 CM/H20; PRES. SUPPORT 12 CM/H2O; SITE RR; TOTAL RESP RATE 23 resp/min
[2017-08-17] VITALS (24 sets, daily range): BP systolic 108–142; BP diastolic 55–78
[2017-08-17 05:27] LABS: BASOPHIL (%) 0.6 % (0-1); BASOPHIL COUNT 0.1 K/uL (0-0.1); EOSINOPHIL (%) 5.6 % (0-5); EOSINOPHIL COUNT 0.7 K/uL (0-0.3); HEMOGLOBIN 8.9 G/DL (11.9-15.5); IMMATURE GRANULOCYTE (%) 1.7 % (0.0-0.7); LYMPHOCYTE COUNT 0.9 K/uL (1.0-2.8); MCH 28.3 PG (29.0-34.0); MCHC 30.7 G/DL (30.0-36.0); MCV 92.1 FL (83-99); MONOCYTE (%) 5.6 % (3-12); MONOCYTE COUNT 0.8 K/uL (0-0.8); NEUTROPHIL (%) 79.5 % (45-76); NEUTROPHIL COUNT 10.6 K/uL (1.8-6.4); PLATELET COUNT 250 K/uL (156-360); RBC DIS.WIDTH-CV 17.1 % (11.8-14.6); RBC DIS.WIDTH-SD 57.8 % (39-53); RED BLOOD COUNT 3.15 M/uL (3.80-5.20); WHITE BLOOD COUNT 13.3 K/uL (4.1-10.2)
[2017-08-17 06:05] LABS: CHLORIDE 106 MEQ/L (99-109); CREATININE 2.8 MG/DL (0.6-1.3); GFR ESTIMATE (CALCULATED) 18 mL/min/; GLUCOSE 205 mg/dL (70-99); MAGNESIUM 2.5 mg/dl (1.3-2.7); PHOSPHORUS 4.3 mg/dL (2.5-4.9); POTASSIUM 4.4 MEQ/L (3.7-5.4); SODIUM 138 MEQ/L (136-147); UREA NITROGEN (BUN) 53 mg/dL (9-23)
[2017-08-17 17:09] LABS: INTER. NORMALIZED RATIO 1.2
[2017-08-17 17:11] LABS: PTT 29.8 SEC (25-37)
[2017-08-18] VITALS (22 sets, daily range): BP systolic 102–144; BP diastolic 53–86
[2017-08-18 04:42] LABS: BASOPHIL (%) 0.4 % (0-1); BASOPHIL COUNT 0.1 K/uL (0-0.1); EOSINOPHIL COUNT 0.6 K/uL (0-0.3); HEMATOCRIT 26.4 % (36.0-46.0); HEMOGLOBIN 8.4 G/DL (11.9-15.5); IMMATURE GRANULOCYTE (%) 2.1 % (0.0-0.7); LYMPHOCYTE (%) 5.5 % (15-42); LYMPHOCYTE COUNT 0.8 K/uL (1.0-2.8); MCH 28.8 PG (29.0-34.0); MCHC 31.8 G/DL (30.0-36.0); MCV 90.4 FL (83-99); MONOCYTE (%) 5.3 % (3-12); MONOCYTE COUNT 0.7 K/uL (0-0.8); NEUTROPHIL (%) 82.7 % (45-76); NEUTROPHIL COUNT 11.5 K/uL (1.8-6.4); PLATELET COUNT 255 K/uL (156-360); RBC DIS.WIDTH-CV 17.2 % (11.8-14.6); RED BLOOD COUNT 2.92 M/uL (3.80-5.20); WHITE BLOOD COUNT 13.9 K/uL (4.1-10.2)
[2017-08-18 05:02] LABS: CHLORIDE 106 mEq/L (99-109); POTASSIUM 3.7 mEq/L (3.7-5.4); SODIUM 138 mEq/L (136-147)
[2017-08-18 05:04] LABS: GLUCOSE 211 mg/dL (70-99)
[2017-08-18 05:08] LABS: CREATININE 2.8 mg/dL (0.6-1.3); GFR ESTIMATE (CALCULATED) 18 mL/min/; UREA NITROGEN (BUN) 57 mg/dL (9-23)
[2017-08-18 05:33] LABS: C4 COMPLEMENT 19 MG/DL (10-40)
[2017-08-18 16:33] LABS: CHLORIDE 105 MEQ/L (99-109); CREATININE 2.5 MG/DL (0.6-1.3); GFR ESTIMATE (CALCULATED) 20 mL/min/; GLUCOSE 214 mg/dL (70-99); POTASSIUM 3.7 MEQ/L (3.7-5.4); SODIUM 137 MEQ/L (136-147); UREA NITROGEN (BUN) 58 mg/dL (9-23)
[2017-08-19] VITALS (21 sets, daily range): BP systolic 100–133; BP diastolic 47–71
[2017-08-19 05:04] LABS: BASOPHIL (%) 0.3 % (0-1); EOSINOPHIL COUNT 0.7 K/uL (0-0.3); IMMATURE GRANULOCYTE (%) 1.9 % (0.0-0.7); LYMPHOCYTE (%) 7.7 % (15-42); MCH 29.1 PG (29.0-34.0); MCV 90.9 FL (83-99); MONOCYTE (%) 6.5 % (3-12); MONOCYTE COUNT 0.9 K/uL (0-0.8); NEUTROPHIL (%) 78.6 % (45-76); NEUTROPHIL COUNT 10.6 K/uL (1.8-6.4); PLATELET COUNT 238 K/uL (156-360); RBC DIS.WIDTH-CV 17.2 % (11.8-14.6); RED BLOOD COUNT 2.75 M/uL (3.80-5.20); WHITE BLOOD COUNT 13.4 K/uL (4.1-10.2)
[2017-08-19 05:22] LABS: CHLORIDE 104 mEq/L (99-109); POTASSIUM 3.4 mEq/L (3.7-5.4); SODIUM 141 mEq/L (136-147)
[2017-08-19 05:24] LABS: GLUCOSE 187 mg/dL (70-99)
[2017-08-19 05:27] LABS: CREATININE 2.8 mg/dL (0.6-1.3); GFR ESTIMATE (CALCULATED) 18 mL/min/
[2017-08-19 05:28] LABS: UREA NITROGEN (BUN) 60 mg/dL (9-23)
[2017-08-20] VITALS (21 sets, daily range): BP systolic 111–144; BP diastolic 57–92
[2017-08-20 04:48] LABS: BASOPHIL (%) 0.4 % (0-1); BASOPHIL COUNT 0.1 K/uL (0-0.1); EOSINOPHIL (%) 5.5 % (0-5); EOSINOPHIL COUNT 0.8 K/uL (0-0.3); HEMATOCRIT 24.9 % (36.0-46.0); IMMATURE GRANULOCYTE (%) 1.8 % (0.0-0.7); LYMPHOCYTE (%) 6.3 % (15-42); LYMPHOCYTE COUNT 0.9 K/uL (1.0-2.8); MCH 28.7 PG (29.0-34.0); MCHC 32.1 G/DL (30.0-36.0); MCV 89.2 FL (83-99); MONOCYTE (%) 4.8 % (3-12); MONOCYTE COUNT 0.7 K/uL (0-0.8); NEUTROPHIL (%) 81.2 % (45-76); NEUTROPHIL COUNT 11.3 K/uL (1.8-6.4); PLATELET COUNT 266 K/uL (156-360); RBC DIS.WIDTH-CV 17.2 % (11.8-14.6); RED BLOOD COUNT 2.79 M/uL (3.80-5.20); WHITE BLOOD COUNT 13.9 K/uL (4.1-10.2)
[2017-08-20 05:05] LABS: CHLORIDE 102 mEq/L (99-109); POTASSIUM 3.1 mEq/L (3.7-5.4); SODIUM 139 mEq/L (136-147)
[2017-08-20 05:07] LABS: GLUCOSE 167 mg/dL (70-99)
[2017-08-20 05:11] LABS: CREATININE 2.8 mg/dL (0.6-1.3); GFR ESTIMATE (CALCULATED) 18 mL/min/; UREA NITROGEN (BUN) 64 mg/dL (9-23)
[2017-08-21] VITALS (21 sets, daily range): BP systolic 93–135; BP diastolic 48–83
[2017-08-21 05:38] LABS: BASOPHIL (%) 0.4 % (0-1); BASOPHIL COUNT 0.1 K/uL (0-0.1); EOSINOPHIL COUNT 0.5 K/uL (0-0.3); HEMATOCRIT 24.5 % (36.0-46.0); HEMOGLOBIN 7.8 G/DL (11.9-15.5); IMMATURE GRANULOCYTE (%) 1.5 % (0.0-0.7); LYMPHOCYTE (%) 10.6 % (15-42); LYMPHOCYTE COUNT 1.4 K/uL (1.0-2.8); MCH 28.7 PG (29.0-34.0); MCHC 31.8 G/DL (30.0-36.0); MCV 90.1 FL (83-99); MONOCYTE (%) 5.2 % (3-12); MONOCYTE COUNT 0.7 K/uL (0-0.8); NEUTROPHIL (%) 78.3 % (45-76); NEUTROPHIL COUNT 10.6 K/uL (1.8-6.4); PLATELET COUNT 270 K/uL (156-360); RBC DIS.WIDTH-CV 17.5 % (11.8-14.6); RBC DIS.WIDTH-SD 56.6 % (39-53); RED BLOOD COUNT 2.72 M/uL (3.80-5.20); WHITE BLOOD COUNT 13.6 K/uL (4.1-10.2)
[2017-08-21 05:57] LABS: CHLORIDE 99 MEQ/L (99-109); CREATININE 2.9 MG/DL (0.6-1.3); GFR ESTIMATE (CALCULATED) 17 mL/min/; GLUCOSE 147 mg/dL (70-99); MAGNESIUM 2.3 mg/dl (1.3-2.7); PHOSPHORUS 4.8 mg/dL (2.5-4.9); POTASSIUM 3.2 MEQ/L (3.7-5.4); SODIUM 137 MEQ/L (136-147); UREA NITROGEN (BUN) 69 mg/dL (9-23)
[2017-08-21 16:59] LABS: CHLORIDE 99 MEQ/L (99-109); CREATININE 3.1 MG/DL (0.6-1.3); GFR ESTIMATE (CALCULATED) 16 mL/min/; GLUCOSE 115 mg/dL (70-99); SODIUM 136 MEQ/L (136-147); UREA NITROGEN (BUN) 67 mg/dL (9-23)
[2017-08-21 17:16] LABS: POTASSIUM 3.9 MEQ/L (3.7-5.4)
[2017-08-22] VITALS (22 sets, daily range): BP systolic 93–136; BP diastolic 54–87
[2017-08-22 05:55] LABS: BASOPHIL (%) 0.5 % (0-1); BASOPHIL COUNT 0.1 K/uL (0-0.1); EOSINOPHIL (%) 0.6 % (0-5); EOSINOPHIL COUNT 0.1 K/uL (0-0.3); HEMATOCRIT 25.7 % (36.0-46.0); HEMOGLOBIN 8.3 G/DL (11.9-15.5); IMMATURE GRANULOCYTE (%) 1.3 % (0.0-0.7); LYMPHOCYTE (%) 4.8 % (15-42); MCH 28.6 PG (29.0-34.0); MCHC 32.3 G/DL (30.0-36.0); MCV 88.6 FL (83-99); MONOCYTE (%) 3.4 % (3-12); MONOCYTE COUNT 0.7 K/uL (0-0.8); NEUTROPHIL (%) 89.4 % (45-76); NEUTROPHIL COUNT 18.6 K/uL (1.8-6.4); NRBC (%) 0.1 /100 WBC (0-0); PLATELET COUNT 348 K/uL (156-360); RBC DIS.WIDTH-CV 17.8 % (11.8-14.6); RBC DIS.WIDTH-SD 57.4 % (39-53); WHITE BLOOD COUNT 20.8 K/uL (4.1-10.2)
[2017-08-22 06:29] LABS: CHLORIDE 95 MEQ/L (99-109); GFR ESTIMATE (CALCULATED) 16 mL/min/; GLUCOSE 147 mg/dL (70-99); POTASSIUM 3.7 MEQ/L (3.7-5.4); SODIUM 136 MEQ/L (136-147); UREA NITROGEN (BUN) 67 mg/dL (9-23)
[2017-08-22 14:01] LABS: Neutrophil Cytoplasmic Aby Negative (Negative)
[2017-08-23] VITALS (31 sets, daily range): BP systolic 81–122; BP diastolic 47–78
[2017-08-23 05:17] LABS: BASOPHIL (%) 0.4 % (0-1); BASOPHIL COUNT 0.1 K/uL (0-0.1); EOSINOPHIL (%) 0.6 % (0-5); EOSINOPHIL COUNT 0.1 K/uL (0-0.3); HEMATOCRIT 21.3 % (36.0-46.0); HEMOGLOBIN 7.1 G/DL (11.9-15.5); IMMATURE GRANULOCYTE (%) 0.9 % (0.0-0.7); LYMPHOCYTE (%) 5.1 % (15-42); LYMPHOCYTE COUNT 1.1 K/uL (1.0-2.8); MCH 29.1 PG (29.0-34.0); MCHC 33.3 G/DL (30.0-36.0); MCV 87.3 FL (83-99); MONOCYTE (%) 3.9 % (3-12); MONOCYTE COUNT 0.8 K/uL (0-0.8); NEUTROPHIL (%) 89.1 % (45-76); NEUTROPHIL COUNT 18.4 K/uL (1.8-6.4); RBC DIS.WIDTH-CV 17.4 % (11.8-14.6); RBC DIS.WIDTH-SD 55.4 % (39-53); RED BLOOD COUNT 2.44 M/uL (3.80-5.20); WHITE BLOOD COUNT 20.7 K/uL (4.1-10.2)
[2017-08-23 05:26] LABS: ALBUMIN 2.7 g/dL (3.2-4.8); CHLORIDE 99 mEq/L (99-109); SODIUM 141 mEq/L (136-147)
[2017-08-23 05:30] LABS: GLUCOSE 81 mg/dL (70-99); POTASSIUM 2.7 mEq/L (3.7-5.4)
[2017-08-23 05:32] LABS: CREATININE 3.1 mg/dL (0.6-1.3); GFR ESTIMATE (CALCULATED) 16 mL/min/; PHOSPHORUS 4.9 mg/dL (2.5-4.9)
[2017-08-23 05:33] LABS: UREA NITROGEN (BUN) 80 mg/dL (9-23)
[2017-08-23 07:02] LABS: ANISOCYTOSIS 1+; BASOPH.STIPPLING 1+; GIANT PLATELETS 1+; HYPOCHROMASIA 1+; PLAT.SUFFICIENCY ADEQUATE; POLYCHROMASIA 3+; TEAR DROP CELLS 1+
[2017-08-23 07:09] LABS: PLATELET COUNT 239 K/uL (156-360)
[2017-08-23 14:57] LABS: CHLORIDE 96 MEQ/L (99-109); MAGNESIUM 2.3 mg/dl (1.3-2.7); SODIUM 135 MEQ/L (136-147)
[2017-08-23 15:02] LABS: CREATININE 3.3 MG/DL (0.6-1.3); GFR ESTIMATE (CALCULATED) 15 mL/min/; UREA NITROGEN (BUN) 79 mg/dL (9-23)
[2017-08-23 15:28] LABS: POTASSIUM 3.3 MEQ/L (3.7-5.4)
[2017-08-23 15:29] LABS: GLUCOSE 158 mg/dL (70-99); POTASSIUM 3.3 MEQ/L (3.7-5.4)
[2017-08-23 19:24] LABS: HEMATOCRIT 29.2 % (36.0-46.0); HEMOGLOBIN 9.5 G/DL (11.9-15.5); MCV 87.4 FL (83-99)
[2017-08-23 19:42] LABS: CHLORIDE 95 MEQ/L (99-109); CREATININE 3.2 MG/DL (0.6-1.3); GFR ESTIMATE (CALCULATED) 15 mL/min/; GLUCOSE 151 mg/dL (70-99); SODIUM 134 MEQ/L (136-147); UREA NITROGEN (BUN) 79 mg/dL (9-23)
[2017-08-23 19:44] LABS: POTASSIUM 4.2 MEQ/L (3.7-5.4)
[2017-08-23 21:50] LABS: CHLORIDE 97 mEq/L (99-109); POTASSIUM 4.9 mEq/L (3.7-5.4); SODIUM 135 mEq/L (136-147)
[2017-08-23 21:52] LABS: GLUCOSE 137 mg/dL (70-99)
[2017-08-23 21:56] LABS: CREATININE 3.3 mg/dL (0.6-1.3); GFR ESTIMATE (CALCULATED) 15 mL/min/
[2017-08-23 21:57] LABS: UREA NITROGEN (BUN) 82 mg/dL (9-23)
[2017-08-24] VITALS (24 sets, daily range): BP systolic 86–126; BP diastolic 56–76
[2017-08-24 04:41] LABS: BASOPHIL (%) 0.4 % (0-1); BASOPHIL COUNT 0.1 K/uL (0-0.1); EOSINOPHIL (%) 0.7 % (0-5); EOSINOPHIL COUNT 0.2 K/uL (0-0.3); HEMATOCRIT 27.2 % (36.0-46.0); HEMOGLOBIN 9.2 G/DL (11.9-15.5); IMMATURE GRANULOCYTE (%) 1.8 % (0.0-0.7); LYMPHOCYTE (%) 3.6 % (15-42); LYMPHOCYTE COUNT 0.9 K/uL (1.0-2.8); MCH 29.1 PG (29.0-34.0); MCHC 33.8 G/DL (30.0-36.0); MCV 86.1 FL (83-99); MONOCYTE (%) 2.8 % (3-12); MONOCYTE COUNT 0.7 K/uL (0-0.8); NEUTROPHIL (%) 90.7 % (45-76); NEUTROPHIL COUNT 22.2 K/uL (1.8-6.4); PLATELET COUNT 274 K/uL (156-360); RBC DIS.WIDTH-CV 17.2 % (11.8-14.6); RBC DIS.WIDTH-SD 53.6 % (39-53); WHITE BLOOD COUNT 24.5 K/uL (4.1-10.2)
[2017-08-24 04:44] LABS: RED BLOOD COUNT 3.16 M/uL (3.80-5.20)
[2017-08-24 04:58] LABS: CHLORIDE 96 mEq/L (99-109); POTASSIUM 3.7 mEq/L (3.7-5.4); SODIUM 135 mEq/L (136-147)
[2017-08-24 04:59] LABS: GLUCOSE 136 mg/dL (70-99)
[2017-08-24 05:00] LABS: ALBUMIN 2.9 g/dL (3.2-4.8); CHLORIDE 97 mEq/L (99-109); SODIUM 135 mEq/L (136-147)
[2017-08-24 05:02] LABS: GLUCOSE 138 mg/dL (70-99); POTASSIUM 3.7 mEq/L (3.7-5.4)
[2017-08-24 05:03] LABS: CREATININE 3.5 mg/dL (0.6-1.3); GFR ESTIMATE (CALCULATED) 14 mL/min/
[2017-08-24 05:04] LABS: UREA NITROGEN (BUN) 84 mg/dL (9-23)
[2017-08-24 05:06] LABS: CREATININE 3.4 mg/dL (0.6-1.3); GFR ESTIMATE (CALCULATED) 14 mL/min/
[2017-08-24 05:07] LABS: UREA NITROGEN (BUN) 84 mg/dL (9-23)
[2017-08-24 10:55] LABS: CHLORIDE 95 MEQ/L (99-109); CREATININE 3.3 MG/DL (0.6-1.3); GFR ESTIMATE (CALCULATED) 15 mL/min/; GLUCOSE 157 mg/dL (70-99); POTASSIUM 3.5 MEQ/L (3.7-5.4); SODIUM 134 MEQ/L (136-147); UREA NITROGEN (BUN) 81 mg/dL (9-23)
[2017-08-24 13:57] LABS: BASOPHIL (%) 0.3 % (0-1); BASOPHIL COUNT 0.1 K/uL (0-0.1); EOSINOPHIL (%) 0.4 % (0-5); EOSINOPHIL COUNT 0.1 K/uL (0-0.3); HEMATOCRIT 27.7 % (36.0-46.0); HEMOGLOBIN 9.1 G/DL (11.9-15.5); LYMPHOCYTE (%) 3.1 % (15-42); LYMPHOCYTE COUNT 0.7 K/uL (1.0-2.8); MCH 28.9 PG (29.0-34.0); MCHC 32.9 G/DL (30.0-36.0); MCV 87.9 FL (83-99); MONOCYTE (%) 2.4 % (3-12); MONOCYTE COUNT 0.6 K/uL (0-0.8); NEUTROPHIL (%) 92.8 % (45-76); NEUTROPHIL COUNT 21.4 K/uL (1.8-6.4); PLATELET COUNT 257 K/uL (156-360); RBC DIS.WIDTH-CV 17.5 % (11.8-14.6); RBC DIS.WIDTH-SD 55.5 % (39-53); RED BLOOD COUNT 3.15 M/uL (3.80-5.20); WHITE BLOOD COUNT 23.1 K/uL (4.1-10.2)
[2017-08-24 14:23] LABS: ALBUMIN 2.7 G/DL (3.2-4.8); CHLORIDE 95 MEQ/L (99-109); CREATININE 3.2 MG/DL (0.6-1.3); GFR ESTIMATE (CALCULATED) 15 mL/min/; GLUCOSE 130 mg/dL (70-99); MAGNESIUM 2.3 mg/dl (1.3-2.7); SODIUM 135 MEQ/L (136-147); UREA NITROGEN (BUN) 79 mg/dL (9-23)
[2017-08-24 17:14] LABS: CHLORIDE 94 MEQ/L (99-109); CREATININE 3.2 MG/DL (0.6-1.3); GFR ESTIMATE (CALCULATED) 15 mL/min/; GLUCOSE 99 mg/dL (70-99); POTASSIUM 4.7 MEQ/L (3.7-5.4); SODIUM 132 MEQ/L (136-147); UREA NITROGEN (BUN) 85 mg/dL (9-23)
[2017-08-24 21:55] LABS: CHLORIDE 100 mEq/L (99-109); SODIUM 135 mEq/L (136-147)
[2017-08-24 21:56] LABS: MAGNESIUM 2.1 mg/dL (1.3-2.7)
[2017-08-24 21:58] LABS: GLUCOSE 89 mg/dL (70-99)
[2017-08-24 22:01] LABS: PHOSPHORUS 3.5 mg/dL (2.5-4.9)
[2017-08-24 22:02] LABS: UREA NITROGEN (BUN) 62 mg/dL (9-23)
[2017-08-24 22:03] LABS: CREATININE 2.5 mg/dL (0.6-1.3); GFR ESTIMATE (CALCULATED) 20 mL/min/; POTASSIUM 5.8 mEq/L (3.7-5.4)
[2017-08-25] VITALS (27 sets, daily range): BP systolic 50–107; BP diastolic 49–72
[2017-08-25 04:30] LABS: BASOPHIL (%) 0.4 % (0-1); BASOPHIL COUNT 0.1 K/uL (0-0.1); EOSINOPHIL (%) 0.3 % (0-5); EOSINOPHIL COUNT 0.1 K/uL (0-0.3); HEMOGLOBIN 9.2 G/DL (11.9-15.5); IMMATURE GRANULOCYTE (%) 1.1 % (0.0-0.7); LYMPHOCYTE (%) 3.6 % (15-42); LYMPHOCYTE COUNT 0.6 K/uL (1.0-2.8); MCH 29.2 PG (29.0-34.0); MCHC 32.9 G/DL (30.0-36.0); MCV 88.9 FL (83-99); MONOCYTE (%) 2.9 % (3-12); MONOCYTE COUNT 0.5 K/uL (0-0.8); NEUTROPHIL (%) 91.7 % (45-76); NEUTROPHIL COUNT 14.7 K/uL (1.8-6.4); PLATELET COUNT 190 K/uL (156-360); RBC DIS.WIDTH-CV 17.8 % (11.8-14.6); RED BLOOD COUNT 3.15 M/uL (3.80-5.20)
[2017-08-25 04:39] LABS: ALBUMIN 2.9 g/dL (3.2-4.8); CHLORIDE 102 mEq/L (99-109); POTASSIUM 5.3 mEq/L (3.7-5.4); SODIUM 138 mEq/L (136-147)
[2017-08-25 04:40] LABS: MAGNESIUM 2.2 mg/dL (1.3-2.7)
[2017-08-25 04:42] LABS: GLUCOSE 91 mg/dL (70-99); TOTAL PROTEIN 6.5 g/dL (6.4-8.3)
[2017-08-25 04:44] LABS: TOTAL BILIRUBIN 1.6 mg/dL (0.0-1.0)
[2017-08-25 04:45] LABS: ALKALINE PHOSPHATASE 124 IU/L (3-129); PHOSPHORUS 2.9 mg/dL (2.5-4.9)
[2017-08-25 04:46] LABS: GFR ESTIMATE (CALCULATED) 34 mL/min/
[2017-08-25 04:47] LABS: AST (GOT) 24 IU/L (2-34); UREA NITROGEN (BUN) 39 mg/dL (9-23)
[2017-08-25 04:48] LABS: ALT (GPT) 18 IU/L (3-49)
[2017-08-25 04:50] LABS: CREATININE 1.6 mg/dL (0.6-1.3)
[2017-08-25 10:42] LABS: CHLORIDE 101 MEQ/L (99-109); GFR ESTIMATE (CALCULATED) 52 mL/min/; GLUCOSE 101 mg/dL (70-99); SODIUM 138 MEQ/L (136-147); UREA NITROGEN (BUN) 27 mg/dL (9-23)
[2017-08-25 10:43] LABS: CREATININE 1.1 MG/DL (0.6-1.3)
[2017-08-25 13:59] LABS: BASOPHIL (%) 0.3 % (0-1); EOSINOPHIL (%) 0.4 % (0-5); EOSINOPHIL COUNT 0.1 K/uL (0-0.3); HEMATOCRIT 29.5 % (36.0-46.0); HEMOGLOBIN 9.2 G/DL (11.9-15.5); IMMATURE GRANULOCYTE (%) 0.9 % (0.0-0.7); LYMPHOCYTE (%) 3.4 % (15-42); LYMPHOCYTE COUNT 0.5 K/uL (1.0-2.8); MCH 28.6 PG (29.0-34.0); MCHC 31.2 G/DL (30.0-36.0); MCV 91.6 FL (83-99); MONOCYTE (%) 2.6 % (3-12); MONOCYTE COUNT 0.4 K/uL (0-0.8); NEUTROPHIL (%) 92.4 % (45-76); NEUTROPHIL COUNT 14.8 K/uL (1.8-6.4); PLATELET COUNT 180 K/uL (156-360); RBC DIS.WIDTH-CV 17.8 % (11.8-14.6); RBC DIS.WIDTH-SD 58.5 % (39-53); RED BLOOD COUNT 3.22 M/uL (3.80-5.20)
[2017-08-25 14:33] LABS: ALBUMIN 2.9 G/DL (3.2-4.8); CHLORIDE 102 MEQ/L (99-109); CREATININE 0.9 MG/DL (0.6-1.3); GFR ESTIMATE (CALCULATED) > 59 mL/min/; GLUCOSE 114 mg/dL (70-99); MAGNESIUM 2.4 mg/dl (1.3-2.7); POTASSIUM 4.8 MEQ/L (3.7-5.4); SODIUM 135 MEQ/L (136-147); UREA NITROGEN (BUN) 20 mg/dL (9-23)
[2017-08-25 14:36] LABS: PHOSPHORUS 2.2 mg/dL (2.5-4.9)
[2017-08-25 22:31] LABS: ALBUMIN 3.6 G/DL (3.2-4.8); CHLORIDE 102 MEQ/L (99-109); CREATININE 0.8 MG/DL (0.6-1.3); GFR ESTIMATE (CALCULATED) > 59 mL/min/; GLUCOSE 131 mg/dL (70-99); MAGNESIUM 2.6 mg/dl (1.3-2.7); PHOSPHORUS 2.1 mg/dL (2.5-4.9); SODIUM 137 MEQ/L (136-147); UREA NITROGEN (BUN) 14 mg/dL (9-23)
[2017-08-25 23:41] LABS: BASE EXCESS -5.9 mEq/L (-3 to +3); BICARBONATE 19.5 mEq/L (22-26); CARBOXY HGB 3.4 % (0-5); METHEMOGLOBIN 1.9 % (0-1.5); PCO2 37 mm Hg (35-45); pH 7.33 (7.35-7.45)
[2017-08-25 23:42] LABS: COMMENTS - BLOOD GASES C; DEVICE NCHH; FI02 60 %; O2 FLOW 40 L/MIN; PO2 60 mm Hg (80-100); SITE LB
[2017-08-25 23:43] LABS: TOTAL RESP RATE 32 resp/min
[2017-08-26] VITALS (51 sets, daily range): BP systolic 68–140; BP diastolic 38–84
[2017-08-26 04:23] LABS: BASOPHIL (%) 0.3 % (0-1); BASOPHIL COUNT 0.1 K/uL (0-0.1); EOSINOPHIL (%) 0.1 % (0-5); HEMATOCRIT 32.1 % (36.0-46.0); HEMOGLOBIN 9.7 G/DL (11.9-15.5); IMMATURE GRANULOCYTE (%) 3.6 % (0.0-0.7); LYMPHOCYTE (%) 3.6 % (15-42); MCH 29.2 PG (29.0-34.0); MCHC 30.2 G/DL (30.0-36.0); MONOCYTE (%) 2.8 % (3-12); MONOCYTE COUNT 0.8 K/uL (0-0.8); NEUTROPHIL (%) 89.6 % (45-76); NEUTROPHIL COUNT 24.6 K/uL (1.8-6.4); NRBC (%) 0.1 /100 WBC (0-0); RBC DIS.WIDTH-CV 18.8 % (11.8-14.6); RBC DIS.WIDTH-SD 65.1 % (39-53); RED BLOOD COUNT 3.32 M/uL (3.80-5.20); WHITE BLOOD COUNT 27.4 K/uL (4.1-10.2)
[2017-08-26 04:26] LABS: MCV 96.7 FL (83-99)
[2017-08-26 04:32] LABS: ALBUMIN 3.9 g/dL (3.2-4.8)
[2017-08-26 04:33] LABS: CHLORIDE 103 mEq/L (99-109); POTASSIUM 5.9 mEq/L (3.7-5.4); SODIUM 139 mEq/L (136-147)
[2017-08-26 04:38] LABS: PHOSPHORUS 3.5 mg/dL (2.5-4.9)
[2017-08-26 04:39] LABS: CREATININE 0.8 mg/dL (0.6-1.3); GFR ESTIMATE (CALCULATED) > 59 mL/min/
[2017-08-26 04:40] LABS: GLUCOSE 59 mg/dL (70-99); MAGNESIUM 2.7 mg/dL (1.3-2.7); UREA NITROGEN (BUN) 12 mg/dL (9-23)
[2017-08-26 05:00] LABS: ANISOCYTOSIS 1+; GIANT PLATELETS 1+; MACROCYTES 1+; PLAT.SUFFICIENCY ADEQUATE; POIKILOCYTOSIS 2+; POLYCHROMASIA 1+
[2017-08-26 05:02] LABS: PLATELET COUNT 336 K/uL (156-360)
[2017-08-26 14:53] LABS: ABS NEUTROPHIL COUNT 21.9; ALBUMIN 4.3 G/DL (3.2-4.8); BAND NEUTROPHILS 0.9 % (0-8.0); CHLORIDE 102 MEQ/L (99-109); CREATININE 0.6 MG/DL (0.6-1.3); EOSINOPHIL ABS CT 0; GFR ESTIMATE (CALCULATED) > 59 mL/min/; HEMATOCRIT 28.3 % (36.0-46.0); HEMOGLOBIN 8.4 G/DL (11.9-15.5); LYMPHOCYTES 2.6 % (15.0-45.0); MAGNESIUM 2.4 mg/dl (1.3-2.7); MCHC 29.7 G/DL (30.0-36.0); MCV 97.6 FL (83-99); MONOCYTES 1.7 % (0-9.0); NRBC (%) 0.1 /100 WBC (0-0); PHOSPHORUS 2.4 mg/dL (2.5-4.9); RBC DIS.WIDTH-CV 18.8 % (11.8-14.6); RBC DIS.WIDTH-SD 64.8 % (39-53); SEG.NEUTROPHILS 94.8 % (46.0-76.0); SMUDGE CELLS 2.6; SODIUM 139 MEQ/L (136-147); UREA NITROGEN (BUN) 9 mg/dL (9-23); WHITE BLOOD COUNT 22.9 K/uL (4.1-10.2)
[2017-08-26 14:54] LABS: GLUCOSE 87 mg/dL (70-99); POTASSIUM 4.3 MEQ/L (3.7-5.4)
[2017-08-26 14:56] LABS: PLATELET COUNT 219 K/uL (156-360)
[2017-08-26 21:07] LABS: BASE EXCESS -12.9 mEq/L (-3 to +3); BICARBONATE 17.8 mEq/L (22-26); CARBOXY HGB 2.9 % (0-5); DEVICE vent; FI02 80 %; MECHANICAL RATE 6 resp/min; MODE simv; PCO2 69 mm Hg (35-45); PO2 79 mm Hg (80-100); SITE RR; TIDAL VOLUME 400 ML; TOTAL RESP RATE 30 resp/min
[2017-08-26 21:08] LABS: PEEP 5 CM/H20; PRES. SUPPORT 10 CM/H2O; pH 7.02 (7.35-7.45)
[2017-08-26 22:08] LABS: PTT 33.2 SEC (25-37)
[2017-08-26 22:21] LABS: ALBUMIN 4.7 G/DL (3.2-4.8); ALKALINE PHOSPHATASE 115 IU/L (3-129); ALT (GPT) 78 IU/L (3-49); AST (GOT) 219 IU/L (2-34); CHLORIDE 100 MEQ/L (99-109); CREATININE 0.5 MG/DL (0.6-1.3); DIRECT BILIRUBIN 2.8 mg/dL (0.0-0.3); GFR ESTIMATE (CALCULATED) > 59 mL/min/; GLUCOSE 83 mg/dL (70-99); MAGNESIUM 2.2 mg/dl (1.3-2.7); SODIUM 137 MEQ/L (136-147); TOTAL BILIRUBIN 3.8 MG/DL (0.0-1.0); TOTAL PROTEIN 7.3 G/DL (6.4-8.3); UREA NITROGEN (BUN) 7 mg/dL (9-23)
[2017-08-26 22:22] LABS: PHOSPHORUS 3.4 mg/dL (2.5-4.9)
[2017-08-27] VITALS (27 sets, daily range): BP systolic 71–134; BP diastolic 44–79
[2017-08-27 00:30] LABS: BASE EXCESS -8.5 mEq/L (-3 to +3); BICARBONATE 18.8 mEq/L (22-26); CARBOXY HGB 2.5 % (0-5); METHEMOGLOBIN 2.5 % (0-1.5); PCO2 46 mm Hg (35-45); PO2 95 mm Hg (80-100)
[2017-08-27 00:31] LABS: COMMENTS - BLOOD GASES NA.C+; DEVICE 980; FI02 60 %; INSPIRATION TIME 1.1 seconds; MECHANICAL RATE 20 resp/min; MODE AC/VC+; PEEP 10 CM/H20; SITE RR; TIDAL VOLUME 450 ML; TOTAL RESP RATE 27 resp/min
[2017-08-27 00:32] LABS: pH 7.22 (7.35-7.45)
[2017-08-27 01:30] LABS: BASOPHIL (%) 0.3 % (0-1); BASOPHIL COUNT 0.1 K/uL (0-0.1); EOSINOPHIL (%) 0 % (0-5); IMMATURE GRANULOCYTE (%) 2.5 % (0.0-0.7); LYMPHOCYTE (%) 4.1 % (15-42); LYMPHOCYTE COUNT 1.4 K/uL (1.0-2.8); MONOCYTE (%) 2.3 % (3-12); MONOCYTE COUNT 0.8 K/uL (0-0.8); NEUTROPHIL (%) 90.8 % (45-76); NEUTROPHIL COUNT 30.2 K/uL (1.8-6.4); PLATELET COUNT 265 K/uL (156-360)
[2017-08-27 01:58] LABS: HEMATOCRIT 28.9 % (36.0-46.0); HEMOGLOBIN 8.7 G/DL (11.9-15.5); MCH 29.3 PG (29.0-34.0); MCHC 30.1 G/DL (30.0-36.0); MCV 97.3 FL (83-99); NRBC (%) 0.3 /100 WBC (0-0); RBC DIS.WIDTH-CV 19.3 % (11.8-14.6); RBC DIS.WIDTH-SD 67.1 % (39-53); RED BLOOD COUNT 2.97 M/uL (3.80-5.20)
[2017-08-27 03:35] LABS: WHITE BLOOD COUNT 32.8 K/uL (4.1-10.2)
[2017-08-27 05:26] LABS: INTER. NORMALIZED RATIO 3.4
[2017-08-27 05:28] LABS: PTT 31.5 SEC (25-37)
[2017-08-27 05:39] LABS: ALBUMIN 4.5 g/dL (3.2-4.8)
[2017-08-27 05:40] LABS: BASOPHIL (%) 0.2 % (0-1); BASOPHIL COUNT 0.1 K/uL (0-0.1); CHLORIDE 101 mEq/L (99-109); EOSINOPHIL (%) 0 % (0-5); IMMATURE GRANULOCYTE (%) 3.1 % (0.0-0.7); LYMPHOCYTE (%) 4.1 % (15-42); LYMPHOCYTE COUNT 1.3 K/uL (1.0-2.8); MONOCYTE (%) 2.3 % (3-12); MONOCYTE COUNT 0.7 K/uL (0-0.8); NEUTROPHIL (%) 90.3 % (45-76); NEUTROPHIL COUNT 28.5 K/uL (1.8-6.4); PLATELET COUNT 265 K/uL (156-360); POTASSIUM 3.5 mEq/L (3.7-5.4); SODIUM 143 mEq/L (136-147)
[2017-08-27 05:41] LABS: ALBUMIN 4.3 g/dL (3.2-4.8); CHLORIDE 101 mEq/L (99-109); POTASSIUM 3.4 mEq/L (3.7-5.4); SODIUM 142 mEq/L (136-147)
[2017-08-27 05:43] LABS: GLUCOSE 55 mg/dL (70-99)
[2017-08-27 05:44] LABS: TOTAL PROTEIN 7.1 g/dL (6.4-8.3)
[2017-08-27 05:45] LABS: PHOSPHORUS 1.8 mg/dL (2.5-4.9)
[2017-08-27 05:46] LABS: CREATININE 0.6 mg/dL (0.6-1.3); GFR ESTIMATE (CALCULATED) > 59 mL/min/
[2017-08-27 05:47] LABS: ALKALINE PHOSPHATASE 126 IU/L (3-129); CREATININE 0.6 mg/dL (0.6-1.3); GFR ESTIMATE (CALCULATED) > 59 mL/min/; UREA NITROGEN (BUN) 7 mg/dL (9-23)
[2017-08-27 05:48] LABS: UREA NITROGEN (BUN) 7 mg/dL (9-23)
[2017-08-27 05:56] LABS: GLUCOSE 52 mg/dL (70-99); MAGNESIUM 1.8 mg/dL (1.3-2.7)
[2017-08-27 05:57] LABS: ALT (GPT) 354 IU/L (3-49); AST (GOT) 1104 IU/L (2-34); TOTAL BILIRUBIN 4.3 mg/dL (0.0-1.0)
[2017-08-27 06:00] LABS: HEMATOCRIT 26.6 % (36.0-46.0); HEMOGLOBIN 8.2 G/DL (11.9-15.5); MCHC 30.8 G/DL (30.0-36.0); MCV 97.4 FL (83-99); NRBC (%) 0.4 /100 WBC (0-0); RBC DIS.WIDTH-CV 19.2 % (11.8-14.6); RBC DIS.WIDTH-SD 65.8 % (39-53); RED BLOOD COUNT 2.73 M/uL (3.80-5.20)
[2017-08-27 06:07] LABS: WHITE BLOOD COUNT 31.6 K/uL (4.1-10.2)
[2017-08-27 14:06] LABS: BASOPHIL (%) 0.3 % (0-1); BASOPHIL COUNT 0.1 K/uL (0-0.1); EOSINOPHIL (%) 0 % (0-5); IMMATURE GRANULOCYTE (%) 2.7 % (0.0-0.7); LYMPHOCYTE (%) 3.9 % (15-42); LYMPHOCYTE COUNT 1.2 K/uL (1.0-2.8); MONOCYTE (%) 2.9 % (3-12); MONOCYTE COUNT 0.9 K/uL (0-0.8); NEUTROPHIL (%) 90.2 % (45-76); NEUTROPHIL COUNT 28.9 K/uL (1.8-6.4); PLATELET COUNT 263 K/uL (156-360)
[2017-08-27 14:17] LABS: HEMATOCRIT 28.5 % (36.0-46.0); HEMOGLOBIN 8.4 G/DL (11.9-15.5); MCH 29.7 PG (29.0-34.0); MCHC 29.5 G/DL (30.0-36.0); MCV 100.7 FL (83-99); NRBC (%) 1.1 /100 WBC (0-0); RBC DIS.WIDTH-CV 19.9 % (11.8-14.6); RBC DIS.WIDTH-SD 71.6 % (39-53); RED BLOOD COUNT 2.83 M/uL (3.80-5.20); WHITE BLOOD COUNT 32.1 K/uL (4.1-10.2)
[2017-08-27 14:47] LABS: ALBUMIN 4.8 G/DL (3.2-4.8); CHLORIDE 100 MEQ/L (99-109); CREATININE 0.8 MG/DL (0.6-1.3); GFR ESTIMATE (CALCULATED) > 59 mL/min/; GLUCOSE 57 mg/dL (70-99); POTASSIUM 4.1 MEQ/L (3.7-5.4); SODIUM 140 MEQ/L (136-147); UREA NITROGEN (BUN) 10 mg/dL (9-23)
[2017-08-28 14:39] LABS: GLOMERULAR BASEMENT MEMB ABY+ <1.0 AI (<1.0); MYELOPEROXIDASE ANTIBODY (MPO) <1.0 AI (<1.0); PROTEINASE-3 ANTIBODY+ <1.0 AI (<1.0)
== END 2017-08-27 18:05 | DRG 853 ==
LOC: EME 14:27 → 4WEST 16:47 → 4EAST 16:47 → 4WEST 16:47 → EDOF 16:47 → ENRESERV 16:52 → 4EAST 19:34 → ENRESERV 08-10 20:49 → 4WEST 08-10 20:51
PROVIDERS: Emergency Medicine; Family Medicine; Internal Medicine; Internal Medicine Critical Care Medicine; Internal Medicine Nephrology; Internal Medicine Pulmonary Disease; Obstetrics & Gynecology; Surgery
PROC: 5A1955Z Respiratory Ventilation, Greater than 96 Consecutive Hours (ICD-10-PCS; principal; 2017-08-12)
PROC: 0BH17EZ Insertion of Endotracheal Airway into Trachea, Via Natural or Artificial Opening (ICD-10-PCS; principal; 2017-08-12)
PROC: 02HV33Z Insertion of Infusion Device into Superior Vena Cava, Percutaneous Approach (ICD-10-PCS; 2017-08-18)
PROC: 0B9J8ZX Drainage of Left Lower Lung Lobe, Via Natural or Artificial Opening Endoscopic, Diagnostic (ICD-10-PCS; 2017-08-18)
PROC: 0B9F8ZX Drainage of Right Lower Lung Lobe, Via Natural or Artificial Opening Endoscopic, Diagnostic (ICD-10-PCS; 2017-08-18)
PROC: 0BP1XDZ Removal of Intraluminal Device from Trachea, External Approach (ICD-10-PCS; 2017-08-21)
PROC: 30233N1 Transfusion of Nonautologous Red Blood Cells into Peripheral Vein, Percutaneous Approach (ICD-10-PCS; 2017-08-23)
PROC: 02HV33Z Insertion of Infusion Device into Superior Vena Cava, Percutaneous Approach (ICD-10-PCS; 2017-08-24)
PROC: 5A1D90Z Performance of Urinary Filtration, Continuous, Greater than 18 hours Per Day (ICD-10-PCS; 2017-08-24)
PROC: 0B9F8ZX Drainage of Right Lower Lung Lobe, Via Natural or Artificial Opening Endoscopic, Diagnostic (ICD-10-PCS; 2017-08-27)
PROC: 0B9J8ZX Drainage of Left Lower Lung Lobe, Via Natural or Artificial Opening Endoscopic, Diagnostic (ICD-10-PCS; 2017-08-27)
PROC: 0BH17EZ Insertion of Endotracheal Airway into Trachea, Via Natural or Artificial Opening (ICD-10-PCS; 2017-08-27)
PROC: 30233K1 Transfusion of Nonautologous Frozen Plasma into Peripheral Vein, Percutaneous Approach (ICD-10-PCS; 2017-08-27)
DX: A41.9 Sepsis, unspecified organism (principal); J15.6 Pneumonia due to other Gram-negative bacteria; J96.01 Acute respiratory failure with hypoxia; N17.8 Other acute kidney failure; R65.21 Severe sepsis with septic shock; I11.0 Hypertensive heart disease with heart failure; I50.33 Acute on chronic diastolic (congestive) heart failure; E11.649 Type 2 diabetes mellitus with hypoglycemia without coma; E87.4 Mixed disorder of acid-base balance; E87.5 Hyperkalemia; Z66 Do not resuscitate; Z51.5 Encounter for palliative care; I27.20 Pulmonary hypertension, unspecified; I42.9 Cardiomyopathy, unspecified; I48.2 Chronic atrial fibrillation; D63.8 Anemia in other chronic diseases classified elsewhere; N14.1 Nephropathy induced by other drugs, medicaments and biological substances; T36.8X5A Adverse effect of other systemic antibiotics, initial encounter; T50.8X5A Adverse effect of diagnostic agents, initial encounter; E87.6 Hypokalemia; I34.0 Nonrheumatic mitral (valve) insufficiency; R79.1 Abnormal coagulation profile; T45.515A Adverse effect of anticoagulants, initial encounter; Y95 Nosocomial condition; R47.02 Dysphasia; M54.9 Dorsalgia, unspecified; G89.29 Other chronic pain; Z86.718 Personal history of other venous thrombosis and embolism; Z87.81 Personal history of (healed) traumatic fracture; Z79.4 Long term (current) use of insulin; Z90.49 Acquired absence of other specified parts of digestive tract; Z90.710 Acquired absence of both cervix and uterus; Z91.81 History of falling; Z96.89 Presence of other specified functional implants; Z78.1 Physical restraint status
CPT/HCPCS: 36600; 71045; 71275; 74018; 76604; 76705; 76770; 80048; 80048 91; 80053; 80069; 80076; 80202; 81003; 82330; 82436; 82533 91; 82565; 82570; 82803; 82948; 83520 90; 83605; 83690; 83735; 83880; 84100; 84132 91; 84145 90; 84484; 85014; 85018; 85025; 85025 91; 85027; 85384; 85610; 85730; 86021 90; 86160; 86160 90; 86162 90; 86850; 86860; 86870; 86880; 86900; 86901; 86920; 87040; 87070; 87081; 87086; 87102; 87106; 87116; 87205; 87206; 87252 90; 87278; 87449; 87493; 87502; 87641; 88108; 89190; 92610 GN; 93005; 93306; 93970; 94002; 94003; 94640; 94640 76; 94667; 94668; 94760; 94799; 99202; 99281; 99285; C1751; C9113; J0330; J0456; J0692; J1160; J1200; J1450; J1644; J1815; J1940; J1956; J2060; J2260; J2370; J2405; J2543; J2704; J2930; J3010; J3370; J3475; J3480; J7030; J7040; J7050; J7120; P9016; P9017; P9045; P9047